=== PATIENT | female | born 2000 ===

== ENCOUNTER 2019-09-02 13:27 | Emergency (ER) | payer BC ==
--- NOTE | 2019-09-02 13:55 | UC ---
Ear Complaint HPI - HPI Summary HPI Summary: left ear pain x 1 day sudden onset , pain is 3 out of 10 , decrease hearing, nothing makes it better or worse, sudden onset pain and she dove in the water, no discharge or bleeding - History of Current Complaint Chief Complaint: UCEar Stated Complaint: EAR PAIN Time Seen by Provider: 09/02/19 13:29 Hx Obtained From: Patient Hx Last Menstrual Period: 08/01/19 ?: No Onset/Duration: Sudden Onset, Lasting Days - 1, Still Present Severity Initially: Moderate Severity Currently: Moderate Pain Intensity: 3 Aggravating Factors: Nothing Alleviating Factors: Nothing Associated Signs/Symptoms: Positive: Trauma to Ear. Negative: Discharge, Foreign Body Sensation, Swelling @, URI Symptoms - Allergies/Home Medications Allergies/Adverse Reactions: Allergies Allergy/AdvReac Type Severity Reaction Status Date / Time No Known Allergies Allergy Verified 09/02/19 13:39 Home Medications: Home Medications Etonogestrel [Nexplanon] 68 mg IMPLANT ONCE 09/02/19 [History Confirmed 09/02/19 ] PMH/Surg Hx/FS Hx/Imm Hx Previously Healthy: Yes - Family History Known Family History: Positive: Non-Contributory - Social History Alcohol Use: Occasionally Substance Use Type: None Smoking Status (MU): Never Smoked Tobacco Review of Systems All Other Systems Reviewed And Are Negative: Yes Is Patient Immunocompromised?: No Physical Exam Triage Information Reviewed: Yes Appearance: Well-Appearing, No Pain Distress, Well-Nourished Vital Signs: Initial Vital Signs Temp 98.9 F 09/02/19 13:35 Pulse 87 09/02/19 13:35 Resp 18 09/02/19 13:35 BP 137/72 09/02/19 13:35 Pulse Ox 100 09/02/19 13:35 Vital Signs Reviewed: Yes Eye Exam: Normal Eyes: Positive: Conjunctiva Clear ENT: Positive: Normal ENT inspection, Pharynx normal, Other - TM rupturre at 3 oclock location , minimal bleeding Neck: Positive: Supple, Nontender, No Lymphadenopathy Respiratory: Positive: Chest non-tender, Lungs clear, Normal breath sounds Cardiovascular: Positive: RRR, No Murmur, Pulses Normal Ear Complaint Course/Dx - Differential Dx/Diagnosis Provider Diagnosis: Traumatic rupture of left ear drum Discharge ED - Sign-Out/Discharge Documenting (check all that apply): Patient Departure All imaging exams completed and their final reports reviewed: No Studies - Discharge Plan Condition: Stable Disposition: HOME Prescriptions: Ofloxacin 0.3% (Ear Drop)* [Floxin 0.3% OTIC.PAULY (Ear Drop)] 5 drop LEFT EAR BID #1 btl Patient Education Materials: Ruptured Eardrum (ED) Referrals: Jono Mac MD [Medical Doctor] - 2 Days No Primary Care Phys,NOPCP [Primary Care Provider] - - Billing Disposition and Condition Condition: STABLE Disposition: Home
== END 2019-09-02 13:54 | disposition home or self-care (01) ==
LOC: UCEAST 13:27
DX: S09.22XA Traumatic rupture of left ear drum, initial encounter (principal); X58.XXXA Exposure to other specified factors, initial encounter; Y92.9 Unspecified place or not applicable
CPT/HCPCS: 99202; G0463